=== PATIENT | male | born 1965 | race Caucasian/White ===

== ENCOUNTER 2023-10-16 04:14 | Day surgery (SDC) | payer OTHER ==
[~2023-10-16] VITALS: Ht 180.3 cm; Wt 95.4 kg
[2023-10-16] VITALS (232 sets, daily range): BP systolic 84–147; BP diastolic 45–95
[2023-10-16] MEDS ORDERED: cloNIDine HCL 0.1 MG/TAB PO PRN (07:30)
[2023-10-16] MEDS ORDERED: PANTOPRAZOLE SODIUM Sesquihydr 40 MG/TAB PO PRN (07:30)
[2023-10-16] MEDS ORDERED: diazePAM 5 MG/TAB PO PRN ×2 (07:30→08:30)
[2023-10-16] MEDS ORDERED: ALBUTEROL SULFATE 2.5 MG VIAL IN PRN (07:30)
[2023-10-16] MEDS ORDERED: FAMOTIDINE 20 MG/TAB PO PRN (07:30)
[2023-10-16] MEDS ORDERED: CYANOCOBALAMIN 500 MCG/TAB ( B12) PO PRN (07:30)
[2023-10-16] MEDS ORDERED: SCOPOLAMINE 1.5 MG DIS TD PRN (07:30)
[2023-10-16] MEDS ORDERED: LACTATED RINGER'S 1,000 ML IV PRN ×3 (07:30→19:00)
[2023-10-16] MEDS ORDERED: ASCORBIC ACID 4,000 MG in SODIUM CHLORIDE 0.9% 1,000 ML IV SCH (08:00)
[2023-10-16 08:28] LABS: BASO% 0.4 % (0-3); HEMATOCRIT 45.7 % (39.0-50.0); HEMOGLOBIN 14.9 g/dl (14.0-18.0); IMMATURE GRANULOCYTES 0.4 % (0.0-5.0); LYMPH% 27.2 % (15-41); MEAN CELL VOLUME 91.2 fL CALC (80.0-100.0); MEAN CORPUSCULAR HGB 29.7 pG CALC (26.0-32.0); MEAN CORPUSCULAR HGB CONC 32.6 g/dL CAL (32.0-36.0); MONO% 9.1 % (2-13); NEUT# 3.25 thou/uL (1.82-7.42); NEUT% 61.9 % (42-76); RED BLOOD COUNT 5.01 mill/uL (4.70-6.10); RED CELL DISTRI WIDTH 12.2 % (11.5-15.5)
[2023-10-16 08:38] LABS: ALBUMIN 4.8 g/dL (3.2-5.0); BILIRUBIN, TOTAL 0.3 mg/dL (0.2-1.3); CREATININE 0.9 mg/dL (0.7-1.3); TOTAL PROTEIN 7.7 g/dL (6.3-8.2)
[2023-10-16] MEDS ORDERED: CRESTOR10 MG PO (08:52)
[2023-10-16] MEDS ORDERED: SEROQUEL25 MG PO (08:52)
[2023-10-16] MEDS ORDERED: POTASSIUM CHLORIDE 20 MEQ/100 ML BAG IV PRN (09:30)
[2023-10-16] MEDS ORDERED: OCTREOTIDE ACETATE 100 MCG/VIAL SDV SC PRN (09:30)
[2023-10-16] MEDS ORDERED: PROPOFOL 10 MG/ML 100ML VIAL IV PRN (09:30)
[2023-10-16] MEDS ORDERED: cloNIDine HYDROCHLORIDE 100 MCG/ML 10 ML INJ IV PRN (09:30)
[2023-10-16] MEDS ORDERED: MAGNESIUM SULFATE HEPTAHYDRATE 100 ML IV PRN (09:30)
[2023-10-16] MEDS ORDERED: ROCURONIUM BROMIDE 10 MG/ML 5ML VIAL IV PRN (09:30)
[2023-10-16] MEDS ORDERED: STERILE WATER FOR IRRIGATION 1,000 ML BTL IR PRN (09:30)
[2023-10-16] MEDS ORDERED: cloNIDine HCL 0.1 MG/TAB VT PRN (09:30)
[2023-10-16] MEDS ORDERED: DEXAMETHASONE SODIUM PHOSPHATE PF 10 MG/ML SDV IV PRN ×2 (09:30→19:00)
[2023-10-16] MEDS ORDERED: LIDOCAINE HCL 1% (10MG/ML) 100 MG/10 ML MDV VT PRN ×2 (09:30)
[2023-10-16] MEDS ORDERED: NALTREXONE HCL 50 MG/TAB VT PRN (09:30)
[2023-10-16] MEDS ORDERED: ONDANSETRON HCl 4 MG/2 ML SDV IV PRN ×3 (09:30→19:00)
[2023-10-16] MEDS ORDERED: LIDOCAINE HCL 1% (10MG/ML) 100 MG/10 ML MDV IV PRN (09:30)
[2023-10-16] MEDS ORDERED: PROPOFOL 100 ML IV PRN (09:30)
[2023-10-16] MEDS ORDERED: MIDAZOLAM HCL 2 MG/2 ML VIAL IV PRN (09:30)
[2023-10-16] MEDS ORDERED: THIAMINE HCL 100 MG/ML 2ML VIAL IV PRN (09:30)
[2023-10-16] MEDS ORDERED: diazePAM 5 MG/TAB VT PRN (09:30)
[2023-10-16] MEDS ORDERED: SUCCINYLCHOLINE CHLORIDE 20 MG/ML 10ML VIAL IV PRN (09:30)
[2023-10-16] MEDS ORDERED: DiphenhydrAMINE HCL 50 MG/ML SDV IV PRN (09:30)
[2023-10-16] MEDS ORDERED: NALTREXONE50 MG PO (12:26)
[2023-10-16] MEDS ORDERED: CLONIDINE0.1 MG PO (12:26)
[2023-10-16] MEDS ORDERED: KLONOPIN2 MG PO (12:27)
[2023-10-16] MEDS ORDERED: KETOROLAC TROMETHAMINE 30 MG/ML SDV IV PRN (19:00)
[2023-10-16] MEDS ORDERED: PROMETHAZINE HCL 25 MG in SODIUM CHLORIDE 0.9% 50 ML IV PRN (19:00)
[2023-10-16] MEDS ORDERED: ACETAMINOPHEN 500 MG TAB PO PRN (19:00)
[2023-10-16] MEDS ORDERED: ACETAMINOPHEN 1,000 MG/100 ML VIAL IV PRN (19:00)
[2023-10-16] MEDS ORDERED: PROMETHAZINE HCL 12.5 MG in SODIUM CHLORIDE 0.9% 50 ML IV PRN (19:00)
[2023-10-16] MEDS ORDERED: HALOPERIDOL LACTATE 5 MG/ML SDV IV PRN (19:00)
[2023-10-16] MEDS ORDERED: PATIENT' OWN MED CONTROLLED 1 EA DOSE IV PRN (21:00)
[2023-10-16] MEDS ORDERED: diazePAM 10 MG/2 ML VIAL IV PRN (21:00)
[2023-10-16] MEDS ORDERED: clonazePAM 1 MG/TAB PO SCH (23:00)
[2023-10-16] MEDS ORDERED: cloNIDine HCL 0.1 MG/TAB PO SCH (23:00)
[2023-10-17] MEDS ORDERED: clonazePAM 1 MG/TAB PO PRN ×2 (04:00→08:00)
[2023-10-17] MEDS ORDERED: cloNIDine HCL 0.1 MG/TAB PO PRN (04:00)
[2023-10-17 04:27] VITALS: BP 122/81
[2023-10-17 05:46] LABS: BASO% 0.2 % (0-3); HEMOGLOBIN 15.6 g/dl (14.0-18.0); IMMATURE GRANULOCYTES 0.2 % (0.0-5.0); LYMPH% 9.5 % (15-41); MEAN CORPUSCULAR HGB 29.9 pG CALC (26.0-32.0); MEAN CORPUSCULAR HGB CONC 33.2 g/dL CAL (32.0-36.0); MONO% 2.5 % (2-13); NEUT# 4.91 thou/uL (1.82-7.42); NEUT% 87.6 % (42-76); RED BLOOD COUNT 5.22 mill/uL (4.70-6.10); RED CELL DISTRI WIDTH 12.1 % (11.5-15.5)
[2023-10-17 06:15] LABS: ALBUMIN 4.3 g/dL (3.2-5.0); CREATININE 0.9 mg/dL (0.7-1.3); TOTAL PROTEIN 7.3 g/dL (6.3-8.2)
[2023-10-17 06:21] LABS: BILIRUBIN, TOTAL 0.5 mg/dL (0.2-1.3)
[2023-10-17 07:33] VITALS: BP 102/63
[2023-10-17] MEDS ORDERED: ACETAMINOPHEN 325 MG/TAB PO SCH (08:00)
[2023-10-17] MEDS ORDERED: cloNIDine HCL 0.1 MG/TAB PO SCH (08:00)
[2023-10-17] MEDS ORDERED: NALTREXONE HCL 50 MG/TAB PO SCH (08:00)
[2023-10-17] MEDS ORDERED: PANTOPRAZOLE SODIUM Sesquihydr 40 MG/TAB PO SCH (08:00)
[2023-10-17 08:18] VITALS: BP 102/63
[2023-10-17] MEDS ORDERED: Cholecalciferol 2,000 UNIT/TAB PO PRN (09:00)
[2023-10-17] MEDS ORDERED: MAGNESIUM OXIDE 400 MG/TAB PO PRN (09:00)
[2023-10-17] MEDS ORDERED: ACETAMINOPHEN 500 MG TAB PO PRN (09:00)
== END 2023-10-17 16:02 | disposition home or self-care (01) | DRG 897 ==
LOC: ANR 04:14 → MS2 04:14 → ANR 09:00 → MS2 18:08 → ANR 10-17 16:02
PROVIDERS: ATTEND Anesthesiology
DX: F11.20 Opioid dependence, uncomplicated (principal)
CPT/HCPCS: J1100; J2354; J3475